=== PATIENT | female | born 2005 | race Caucasian/White ===

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

== ENCOUNTER 2024-12-17 18:46 | Emergency (ER) | payer MEDICAID ==
[~2024-12-17] VITALS: Ht 162.6 cm; Wt 57.5 kg
[2024-12-17 18:51] VITALS: BP 109/71; PULSE 65; RESP 16; TEMP 98.1; O2SAT 100
[2024-12-17 20:27] LABS: URINE HCG NEGATIVE (NEG)
--- NOTE | 2024-12-17 21:07 | RADIOLOGY REPORT ---
EXAM: DI CHEST,SINGLE VIEW CLINICAL HISTORY: right shoulder pain TECHNIQUE: Single AP view of the chest WID: COMPARISON: None FINDINGS: Lines and tubes: None Chest: The heart size and pulmonary vasculature is within normal limits. No pleural effusion, pneumothorax, or consolidation. The osseous structures are grossly intact. IMPRESSION: 1. No acute cardiopulmonary abnormality.
[2024-12-17] MEDS: CefTRIAXone 500MG IM Kit w/LIDOcaine IM ONE (22:14)
[2024-12-17] MEDS: LEVONORGESTREL 1.5MG tablet 1.5 MG TABLET PO ONE (22:15)
[2024-12-17] MEDS: TINIDAZOLE 500 MG TABLET PO ONE (22:15)
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
== END 2024-12-17 22:49 | disposition home or self-care (01) ==
LOC: EEVIPCON 18:47 → ER 18:47
DX: T74.21XA Adult sexual abuse, confirmed, initial encounter (principal); Z88.1 Allergy status to other antibiotic agents; Y04.8XXA Assault by other bodily force, initial encounter; Y93.89 Activity, other specified; Y92.89 Other specified places as the place of occurrence of the external cause; Y99.8 Other external cause status
CPT/HCPCS: 71045; 81025; 96372; 99284; J0696